=== PATIENT | female | born 1960 | race Caucasian/White ===

== ENCOUNTER 2024-10-03 07:17 | Day surgery (SDC) | payer MEDICARE, OTHER ==
[2024-10-03] MEDS ORDERED: ONDANSETRON 4 MG/2 ML VIAL IV PRN (09:15)
[2024-10-03] MEDS ORDERED: FENTANYL CITRATE 100 MCG/2 ML AMPUL IV PRN (09:15)
[2024-10-03] MEDS ORDERED: LABETALOL HCL 100 MG/20 ML VIAL IV PRN (09:15)
[2024-10-03] MEDS ORDERED: EPHEDRINE SULFATE 50 MG/ML AMPUL IV PRN (09:15)
[2024-10-03] MEDS ORDERED: PROPOFOL 200 MG/20 ML BOTTLE ONE (09:39)
[2024-10-03 10:53] VITALS: TEMP 97.4
== END 2024-10-03 10:53 | disposition home or self-care (01) ==
LOC: DS 07:17
PROVIDERS: ATTEND Surgery
DX: R13.10 Dysphagia, unspecified (principal); R63.4 Abnormal weight loss; K44.9 Diaphragmatic hernia without obstruction or gangrene; K29.80 Duodenitis without bleeding; K21.9 Gastro-esophageal reflux disease without esophagitis; E11.9 Type 2 diabetes mellitus without complications; I10 Essential (primary) hypertension; K29.70 Gastritis, unspecified, without bleeding; K64.4 Residual hemorrhoidal skin tags; M19.90 Unspecified osteoarthritis, unspecified site; Z79.84 Long term (current) use of oral hypoglycemic drugs; Z79.82 Long term (current) use of aspirin; Z79.899 Other long term (current) drug therapy; Z98.890 Other specified postprocedural states
CPT/HCPCS: 43239; 45378; 71045; 82962; 88305; 88312; 88313; 93005; J3490; J7040; A4663